=== PATIENT | male | born 1985 | race Caucasian/White ===

== ENCOUNTER 2022-07-22 13:44 | Outpatient (CLI) | payer OTHER ==
--- NOTE | 2022-07-22 18:04 | XRAY Report ---
PROCEDURE: Finger(s) LT INDICATIONS: PAIN IN LEFT 2ND FINGER TECHNIQUE: AP hand, 2 views of the second finger(s) acquired. COMPARISON: None FINDINGS: Bones: No fractures or dislocations. No suspicious bony lesions. Soft tissues: No suspicious soft tissue calcifications. IMPRESSION: Normal second digit. Reviewed by: Vikki Lentz MD on 07/22/2022 6:03 PM PST Approved by: Vikki Lentz MD on 07/22/2022 6:03 PM [facility] Station ID: [id number]
== END 2022-07-22 13:45 | disposition home or self-care (01) ==
LOC: DI 13:44
PROVIDERS: ATTEND Student in an Organized Health Care Education/Training Program
DX: M79.645 Pain in left finger(s) (principal)